=== PATIENT | male | born 2000 | race Caucasian/White ===

== ENCOUNTER 2019-03-30 04:05 | Emergency (ER) | payer SELFPAY ==
[~2019-03-30] VITALS: Ht 175.3 cm; Wt 113.4 kg
[2019-03-30 04:09] VITALS: BP 155/81
--- NOTE | 2019-03-30 04:38 | NUR ---
XRAY AT BEDSIDE
--- NOTE | 2019-03-30 04:57 | NUR ---
Patient discharged to home in stable condition. Written and verbal after care instructions given. Patient verbalizes understanding of instruction.
== END 2019-03-30 04:57 | disposition home or self-care (01) ==
LOC: ER 04:08
DX: M79.671 Pain in right foot (principal); L84 Corns and callosities; Z59.0 Homelessness
CPT/HCPCS: 73564-TC; 73630-TC

== ENCOUNTER 2019-04-28 22:49 | Emergency (ER) | payer SELFPAY ==
[~2019-04-28] VITALS: Ht 177.8 cm; Wt 107.5 kg
[2019-04-28 22:57] VITALS: BP 143/78
--- NOTE | 2019-04-28 23:40 | NUR ---
PROVIDED PT WITH SANDWICH AND JUICE
== END 2019-04-29 00:20 | disposition home or self-care (01) ==
LOC: ER 22:52
DX: R05 Cough (principal); R50.9 Fever, unspecified; F17.210 Nicotine dependence, cigarettes, uncomplicated; Z59.0 Homelessness
CPT/HCPCS: 71046